=== PATIENT | female | born 1925 | race Caucasian/White ===

== ENCOUNTER 2016-05-18 05:23 | Emergency (ER) | payer OTHER ==
[~2016-05-18] VITALS: Ht 154.9 cm; Wt 88.1 kg
[~2016-05-18 05:23] MED LIST: ADVIN25/60 INH; ASPCH81 PO; CARV12.52 PO; CHOL100010 PO; CITA20TA9 PO; MELO15TA4 PO; NMN5 PO; PHENSYP13 PO; PRLSR20 PO; QUET1TAB34 PO; SIMV10TA2 PO; VITA400C15 PO; [UNRECOGNIZED DRUG - CODE] PO
[2016-05-18 05:27] VITALS: TEMP 36.4; Ht 154.9 cm; Wt 88.1 kg
--- NOTE | 2016-05-18 05:37 | EMERGENCY ROOM VISIT NOTE ---
ED Visit Note First contact with patient: 05:29 Patient evaluated by me at 5:36 AM, agree with workup from physician animal care assistant [place] Issa. Problem List Medical Problems: (1) Asthma Status: Chronic (2) Benign hypertension Status: Chronic (3) heart disease Status: Chronic (4) PERSONAL HX OF TIA,& CEREBRAL INFARCTION W/OUT RES DEFICITS Status: Resolved (5) Schizophrenia Status: Chronic Current/Historical Medications Scheduled Aspirin (Aspirin Tab-Chewable *), 81 MG PO DAILY Carvedilol (Coreg), 12.5 MG PO BID Cholecalciferol (Vitamin D), 1,000 INTER.UNIT PO DAILY Citalopram Hydrobromide (Celexa), 40 MG PO HS Fluticasone Prop/Salmeterol (Advair Diskus 250/50 60 Dose), 1 PUFF INH BID Memantine (Namenda), 28 MG PO QAM Omeprazole (Prilosec), 20 MG PO DAILY Quetiapine Fumarate (Seroquel), 100 MG PO HS Simvastatin (Zocor), 10 MG PO QPM Tocopheryl Acet,Dl-Alpha (Vitamin E), 400 INTER.UNIT PO DAILY Valsartan/Hctz (Diovan Hct 160MG/25MG *), 1 TAB PO DAILY Scheduled PRN Meloxicam (Mobic), 15 MG PO DIRECTED PRN for Pain Promethaz/Phenylephrin/Codeine (Promethazine Vc/Codeine), 5 ML PO QID PRN for Cough Allergies Coded Allergies: Lisinopril (Unverified Adverse Reaction, Mild, cough, 03/02/15) Vital Signs Date Time Temp Pulse Resp B/P Pulse Ox O2 Delivery O2 Flow Rate FiO2 05/18/16 05:30 66 05/18/16 05:27 36.4 68 24 101/90 98 Room Air Departure Information Referrals Josh Claros M.D. (PCP) Patient Instructions My [facility]
[2016-05-18] MEDS ORDERED: ACETAMINOPHEN 500 MG TAB PO STA (05:39)
[2016-05-18] MEDS ORDERED: ONDANSETRON 4MG OD TAB PO ONE (05:45)
[2016-05-18] MEDS ORDERED: MEMA1CAP7 PO (06:25)
[2016-05-18] MEDS ORDERED: ASPI-435 PO (06:25)
[2016-05-18] MEDS ORDERED: CHOL100027 PO (06:28)
[2016-05-18] MEDS ORDERED: VALS160T60 PO (06:28)
[2016-05-18] MEDS ORDERED: VITA400C3 PO (06:28)
--- NOTE | 2016-05-18 06:28 | EMERGENCY ROOM VISIT NOTE ---
History First contact with patient: 05:29 Chief Complaint: FALL Stated Complaint: FALL/KNEE PAIN History of Present Illness The patient is a 89 year old female who presents to the Emergency Room with complaints of standing up after the commode and falling hitting her knee and her head. Patient is on a baby aspirin. Patient denies loss of conscious, chest pain, dyspnea, abdominal pain, back pain, numbness, tingling, hip pain, ankle pain, arm pain. Patient scribe's the pain as aching, ranging in severity 4 out of 10. Nothing makes it better or worse. She's had a knee replacement. She ambulates with a walker. She lives at home with her family. Review of Systems See HPI for pertinent positives & negatives. A total of 10 systems reviewed and were otherwise negative. Past Medical/Surgical History Medical Problems: (1) Asthma (2) Benign hypertension (3) heart disease (4) PERSONAL HX OF TIA,& CEREBRAL INFARCTION W/OUT RES DEFICITS (5) Schizophrenia Family History Cancer Diabetes mellitus Heart disease Hypertension Social History Smoking Status: Former Smoker Alcohol Use: none Drug Use: none Marital Status: Housing Status: lives with family Occupation Status: retired Current/Historical Medications Scheduled Aspirin (Aspirin 81), 81 MG PO QAM Carvedilol (Coreg), 12.5 MG PO AMHS Citalopram Hydrobromide (Celexa), 40 MG PO HS Memantine Hcl (Namenda Xr), 28 MG PO QAM Omeprazole (Prilosec), 20 MG PO DAILY Quetiapine Fumarate (Seroquel), 100 MG PO HS Simvastatin (Zocor), 10 MG PO QPM Scheduled PRN Meloxicam (Mobic), 15 MG PO DIRECTED PRN for Pain Allergies Coded Allergies: Lisinopril (Unverified Adverse Reaction, Mild, cough, 05/18/16) Physical Exam Vital Signs Date Time Temp Pulse Resp B/P Pulse Ox O2 Delivery O2 Flow Rate FiO2 05/18/16 06:12 64 18 187/107 98 Room Air 05/18/16 05:30 66 05/18/16 05:27 36.4 68 24 101/90 98 Room Air Physical Exam PHYSICAL EXAM: VITALS: Vitals are noted on the nurse's note and reviewed by myself. Vital signs stable. GENERAL: Pleasant female, in no acute distress, nondiaphoretic, well-developed well-nourished. SKIN: Left knee contusion The rest of the skin was without obvious lacerations or abrasions. Capillary reflex less than 2 seconds. HEAD: Normocephalic atraumatic. EARS: External auditory canals clear, tympanic membranes pearly morris without erythema or effusion bilaterally. No hemotympanums. No hunter sign. No mastoid tenderness. EYES: Pupils equal round and reactive to light and accommodation. Conjunctivae without injection, sclerae without icterus. Extraocular movements intact. NOSE: Patent, turbinates without inflammation or discharge. No sinus tenderness. No septal hematoma or bleeding. FACE: No facial bone tenderness. Full range of motion of the jaw without tenderness. MOUTH: Mucous membranes moist. Pharynx without erythema or exudate. Uvula midline. Airway patent. Tongue does not deviate. NECK: Supple without nuchal rigidity. Cervical spine is nontender. Full range of motion of the neck without tenderness. No JVD. HEART: Regular rate and rhythm LUNGS: Clear to auscultation bilaterally without wheezes, rales or rhonchi. No dullness to percussion. No retractions or accessory muscle use. No chest wall tenderness. ABDOMEN: Positive bowel sounds x 4. Normal tympanic percussion. Soft, nontender, without masses or organomegaly. No guarding or rebound tenderness. MUSCULOSKELETAL: No tenderness of the thoracic or lumbar spine. No tenderness with pelvic rocking. Left knee minimally tender to palpation with surgical scars intact with increased pain with range of motion. Full range of motion without tenderness to palpation in all other extremities. Strength 5/5 throughout. Peripheral pulses 2+. NEURO: Patient was alert and oriented to person place and time. . Normal sensation to light and sharp touch. Cerebellar function intact. No focal neurological deficits. Medical Decision & Procedures Medications Administered Medications (Trade) Dose Ordered Sig/Megan Route Start Time Stop Time Status Last Admin Dose Admin Ondansetron HCl (Zofran Odt) 4 mg ONE ONCE PO 05/18/16 05:45 05/18/16 05:46 DC 05/18/16 05:53 4 MG Acetaminophen (Tylenol Tab) 1,000 mg NOW STAT PO 05/18/16 05:39 05/18/16 05:40 DC 05/18/16 05:54 1,000 MG ED Course Prior records/ancillary studies reviewed. Triage Nursing notes reviewed. Additional history obtained from EMS. The patient's history was concerning for traumatic head injury and knee injury Differential diagnosis: Etiologies such as concussion, contusion, fracture, subdural hematoma, epidural hematoma, intraparenchymal hemorrhage, as well as other traumatic pathologies were entertained. Physical examination findings: As above. ER treatment provided: P.o. Tylenol Zofran ODT On reassessment the patient felt better. Diagnostics interpreted by me: Imaging studies: CT HEAD: Mild contour irregularity of the nasal bones, compatible with remote fracture. No intracranial hemorrhage or mass effect. Senescent/chronic appearing changes redemonstrated. Mucosal thickening of the right maxillary sinus. Complete opacification of the left maxillary sinus. CT C SPINE: No acute fracture or dislocation. Multi-level degenerative spondylosis. Question 5 mm groundglass nodule in the left upper lobe (series 501, 80). May consider nonemergent/outpatient CT chest followup if clinically warranted. Radiologist: Franki Cartagena M.D. Knee x-ray with no acute fracture, dislocation or effusion per my interpretation. Hardware seen. It appears the patient has a head injury injury. Patient was neurovascularly and neurologically intact. Unremarkable workup as above. She is advised to ambulate with her walker and to follow-up with family care in a few days or here in the ER sooner her headache, fevers, confusion, worsening signs or symptoms or as needed. No other injuries are noted and patient had no other medical complaints. By the evaluation outlined above emergent etiologies such as fracture, subdural hematoma, epidural hematoma, intraparenchymal hemorrhage, as well as others were deemed relatively unlikely. The pt informed about the findings as listed above. All questions were answered and pleased with the treatment. Return instructions were outlined and the patient was discharged in stable condition. Case reviewed with my attending Referral: The patient was referred back to their primary care physician for follow-up in 2 to 3 days for a recheck of the current condition. Medical Decision As above Impression Primary Impression: Head injury Additional Impressions: Fall Left knee injury Departure Information Dispostion Home / Self-Care Condition GOOD Referrals Josh Claros M.D. (PCP) Patient Instructions My [facility] Additional Instructions Read head injury handout and return for any symptoms. Tylenol 1000 mg as needed for pain (Maximum 3000 mg Tylenol in 24 hr period). Avoid alcohol and contact sports/activities for one week and follow up with family doctor prior to returning to these activities if still symptomatic. Ice and elevate head. If your symptoms persist more than a week then follow up with the concussion clinic. Call [phone]. Return to ER sooner for headache, fevers, confusion, worsening signs or symptoms or as needed. Ambulate with your walker. Follow-up family medicine in 2-3 days for further workup for possible lung nodule seen on CT imaging and for reevaluation. Problem Qualifiers Primary Impression: Head injury Encounter type: initial encounter Qualified Codes: S09.90XA - Unspecified injury of head, initial encounter
[2016-05-18] MEDS ORDERED: TORS20TA2 PO (06:29)
[2016-05-18 06:35] VITALS: PULSE 60; O2SAT 97
--- NOTE | 2016-05-18 06:35 | DIAGNOSTIC IMAGING REPORT ---
HEAD CT NONCONTRAST CT DOSE: HISTORY: Trauma. Pain. fall, head injury TECHNIQUE: Multiaxial CT images of the head were performed without the use of intravenous contrast. Comparison: 11/11/2013 Findings: Opacified left maxillary sinus The calvarium and skull base are intact. The ventricles and sulci are within normal limits. There is no mass, hematoma, midline shift, or acute infarct. Findings of age-related chronic small vessel change Impression: Age-related change. No acute process. Electronically signed by: Ben Camarillo M.D. 05/18/2016 6:34 AM Dictated Date/Time: 05/18/2016 6:32 AM
--- NOTE | 2016-05-18 07:35 | DIAGNOSTIC IMAGING REPORT ---
CERVICAL SPINE CT CT DOSE: 1047.84 mGy.cm HISTORY: Trauma. Pain. fall, head injury TECHNIQUE: Multiaxial CT images of the cervical spine were performed and reformatted in the sagittal and coronal plane without the use of contrast. COMPARISON: 11/11/2013 FINDINGS: No fractures. No subluxation. Prevertebral soft tissues and the C1-C2 interval are intact. No pneumothorax. Moderate degenerative disc change throughout. Posterior arch is intact at all levels IMPRESSION: No acute process of the cervical spine. Electronically signed by: Ben Camarillo M.D. 05/18/2016 7:33 AM Dictated Date/Time: 05/18/2016 7:32 AM
[2016-05-18 07:39] VITALS: BP 155/77
--- NOTE | 2016-05-18 07:53 | DIAGNOSTIC IMAGING REPORT ---
LEFT KNEE 3 VIEWS CLINICAL HISTORY: fall, left trauma. Pain. COMPARISON: None. DISCUSSION: Patient is status post total left knee replacement. Mild prepatellar soft tissue edema is present. No acute bony abnormalities identified. IMPRESSION: No acute bony abnormality status post total left knee replacement Electronically signed by: Ben Camarillo M.D. 05/18/2016 7:52 AM Dictated Date/Time: 05/18/2016 7:40 AM
== END 2016-05-18 07:49 | disposition home or self-care (01) ==
LOC: EDBD 05:23 → C.EDA 05:24
DX: S09.90XA Unspecified injury of head, initial encounter (principal); S89.92XA Unspecified injury of left lower leg, initial encounter; W18.11XA Fall from or off toilet without subsequent striking against object, initial encounter; I10 Essential (primary) hypertension; I51.9 Heart disease, unspecified; J45.909 Unspecified asthma, uncomplicated; F20.9 Schizophrenia, unspecified; Z86.73 Personal history of transient ischemic attack (TIA), and cerebral infarction without residual deficits; Z87.891 Personal history of nicotine dependence; Z79.82 Long term (current) use of aspirin; Z79.899 Other long term (current) drug therapy; Z88.8 Allergy status to other drugs, medicaments and biological substances; Z80.9 Family history of malignant neoplasm, unspecified; Z83.3 Family history of diabetes mellitus; Z82.49 Family history of ischemic heart disease and other diseases of the circulatory system